=== PATIENT | male | born 1950 | race African-American/Black ===

== ENCOUNTER 2017-05-21 02:35 | Inpatient (IN) | payer MEDICAID ==
[~2017-05-21] VITALS: Ht 167.6 cm; Wt 61.2 kg
[2017-05-21] MEDS ORDERED: SODIUM CHLORIDE 0.9% 1,000 ML IV ONE (02:48)
[2017-05-21 03:09] LABS: BASOPHILS % 0.6 % (0.0-2.0); EOSINOPHILS % 0.4 % (0.0-5.0); HEMATOCRIT. 41.1 % (42.0-52.0); HEMOGLOBIN. 13.6 g/dL (14.0-18.0); MEAN CORPUSCULAR HEMOGLOBIN 30.2 pg (28.0-32.0); MEAN CORPUSCULAR VOLUME 90.9 fL (80.0-94.0); MEAN PLATELET VOLUME 8.3 fl (7.4-10.4); MONOCYTES % 0.7 % (2.0-8.0); NEUTROPHILS % 88.3 % (40.0-76.0); PLATELET 183 x1000/uL (130-400); RED BLOOD CELL COUNT 4.52 mill/uL (4.7-6.1)
[2017-05-21 03:11] LABS: CHLORIDE 104 mEq/L (98-107)
[2017-05-21 03:14] LABS: INR 1.1; PROTHROMBIN TIME 11.2 sec (9.4-11.6)
[2017-05-21 03:19] LABS: CARBON DIOXIDE 30 mEq/L (21-32)
[2017-05-21] MEDS ORDERED: MECLIZINE 25MG TABLET PO ONE (05:45)
[2017-05-21] MEDS ORDERED: SODIUM CHLORIDE 0.9% 1,000 ML IV SCH (05:56)
[2017-05-21] MEDS ORDERED: IBUPROFEN 600MG TABLET PO PRN (06:00)
[2017-05-21] MEDS ORDERED: ACETAMINOPHEN 325MG TABLET PO PRN (06:00)
[2017-05-21 07:34] LABS: *AMPHETAMINES SCREEN URINE NEGATIVE (NEGATIVE); *BARBITURATES SCREEN URINE NEGATIVE (NEGATIVE); *BENZODIAZEPINES SCREEN URINE NEGATIVE (NEGATIVE); *COCAINE SCREEN URINE PRESUMTIVE POSITIVE (NEGATIVE); CANNABINOID URINE SCREEN PRESUMTIVE POSITIVE (NEGATIVE); METHADONE URINE SCREEN NEGATIVE (NEGATIVE); OPIATES URINE SCREEN NEGATIVE (NEGATIVE); PHENCYCLIDINE URINE SCREEN NEGATIVE (NEGATIVE)
[2017-05-21 08:00] VITALS: BP 141/73
[2017-05-21] MEDS ORDERED: MORPHINE SULFATE 4 MG/ML CPJ (NOT FOR IM USE) IV PRN (10:30)
[2017-05-21] MEDS ORDERED: ONDANSETRON HCL 4MG/2ML VIAL IV PRN (10:30)
[2017-05-21 11:36] VITALS: BP 159/78
[2017-05-21] MEDS: ENOXAPARIN 40MG/0.4ML SYR SUBCUT SCH (12:33)
[2017-05-21] MEDS: SODIUM CHLORIDE 0.9% 1,000 ML IV SCH (12:33)
[2017-05-21 16:04] VITALS: BP 146/64
[2017-05-21 22:00] VITALS: BP 143/62
[2017-05-22] VITALS: BP 136/54
[2017-05-22] MEDS: SODIUM CHLORIDE 0.9% 1,000 ML IV SCH (01:20)
[2017-05-22 04:00] VITALS: BP 138/78
[2017-05-22 05:57] LABS: BASOPHILS % 0.9 % (0.0-2.0); EOSINOPHILS % 0.5 % (0.0-5.0); HEMATOCRIT. 36.2 % (42.0-52.0); HEMOGLOBIN. 12.1 g/dL (14.0-18.0); LYMPHOCYTES % 36.5 % (20.0-50.0); MEAN CORPUSCULAR HEMOGLOBIN 30.2 pg (28.0-32.0); MEAN PLATELET VOLUME 8.8 fl (7.4-10.4); MONOCYTES % 3.7 % (2.0-8.0); NEUTROPHILS % 58.4 % (40.0-76.0); PLATELET 149 x1000/uL (130-400); RED BLOOD CELL COUNT 4.02 mill/uL (4.7-6.1)
[2017-05-22 08:00] VITALS: BP 149/78
[2017-05-22 08:07] LABS: CARBON DIOXIDE 29 mEq/L (21-32); CHLORIDE 107 mEq/L (98-107); HDL CHOLESTEROL 60 mg/dL (40-59); LDL CHOLESTEROL 99 mg/dL (5-100)
[2017-05-22] MEDS: ENOXAPARIN 40MG/0.4ML SYR SUBCUT SCH (09:26)
[2017-05-22] MEDS: ASPIRIN 81MG TABLET PO SCH (10:33)
[2017-05-22] MEDS: AMLODIPINE 5MG TABLET PO SCH (10:33)
[2017-05-22 12:00] VITALS: BP 148/80
[2017-05-22 16:00] VITALS: BP 139/71
[2017-05-22 20:00] VITALS: BP 154/76
[2017-05-23 00:37] VITALS: BP 154/75
[2017-05-23 04:00] VITALS: BP 153/90
[2017-05-23 08:00] VITALS: BP 159/76
[2017-05-23] MEDS: AMLODIPINE 5MG TABLET PO SCH ×2 (08:14→21:27)
[2017-05-23] MEDS: ASPIRIN 81MG TABLET PO SCH (08:14)
[2017-05-23] MEDS: ENOXAPARIN 40MG/0.4ML SYR SUBCUT SCH (08:15)
[2017-05-23 08:39] LABS: BASOPHILS % 1.1 % (0.0-2.0); HEMATOCRIT. 40.6 % (42.0-52.0); HEMOGLOBIN. 13.6 g/dL (14.0-18.0); LYMPHOCYTES % 37.6 % (20.0-50.0); MEAN CORPUSCULAR HEMOGLOBIN 30.1 pg (28.0-32.0); MEAN CORPUSCULAR VOLUME 90.1 fL (80.0-94.0); MEAN PLATELET VOLUME 9.1 fl (7.4-10.4); MONOCYTES % 5.6 % (2.0-8.0); NEUTROPHILS % 54.7 % (40.0-76.0); PLATELET 166 x1000/uL (130-400); RED BLOOD CELL COUNT 4.51 mill/uL (4.7-6.1); RED CELL DISTRIBUTION WIDTH 13.9 % (11.6-14.6)
[2017-05-23 09:02] LABS: CARBON DIOXIDE 30 mEq/L (21-32); CHLORIDE 103 mEq/L (98-107); TROPONIN I 0.05 ng/mL (0.00-0.04)
[2017-05-23] MEDS: SODIUM CHLORIDE 0.9% 1,000 ML IV SCH ×3 (11:12→21:28)
[2017-05-23 12:00] VITALS: BP 122/56
[2017-05-23 16:00] VITALS: BP 125/77
[2017-05-23 20:00] VITALS: BP 127/54
[2017-05-24] VITALS: BP 115/50
[2017-05-24 04:00] VITALS: BP 140/68
[2017-05-24 06:33] LABS: BASOPHILS % 0.9 % (0.0-2.0); EOSINOPHILS % 1.6 % (0.0-5.0); HEMATOCRIT. 42.4 % (42.0-52.0); HEMOGLOBIN. 14.1 g/dL (14.0-18.0); LYMPHOCYTES % 30.6 % (20.0-50.0); MEAN CORPUSCULAR HEMOGLOBIN 30.2 pg (28.0-32.0); MEAN CORPUSCULAR VOLUME 90.4 fL (80.0-94.0); MEAN PLATELET VOLUME 8.7 fl (7.4-10.4); MONOCYTES % 5.3 % (2.0-8.0); NEUTROPHILS % 61.6 % (40.0-76.0); PLATELET 174 x1000/uL (130-400); RED BLOOD CELL COUNT 4.69 mill/uL (4.7-6.1); RED CELL DISTRIBUTION WIDTH 13.9 % (11.6-14.6)
[2017-05-24 06:50] LABS: CARBON DIOXIDE 29 mEq/L (21-32); CHLORIDE 103 mEq/L (98-107); TROPONIN I 0.04 ng/mL (0.00-0.04)
[2017-05-24 07:42] VITALS: BP 128/78
[2017-05-24] MEDS: ASPIRIN 81MG TABLET PO SCH (08:57)
[2017-05-24] MEDS: ENOXAPARIN 40MG/0.4ML SYR SUBCUT SCH (08:58)
[2017-05-24] MEDS: AMLODIPINE 5MG TABLET PO SCH (08:58)
[2017-05-24 11:27] VITALS: BP 122/74
[2017-05-24 17:13] VITALS: BP 127/73
== END 2017-05-24 17:45 | disposition home or self-care (01) | DRG 48 ==
LOC: ER 02:35 → 6WST 05:59 → ENRESERV 07:16
PROVIDERS: ADMIT Internal Medicine; ATTEND Internal Medicine
DX: G90.8 Other disorders of autonomic nervous system (principal); E44.1 Mild protein-calorie malnutrition; I10 Essential (primary) hypertension; F20.9 Schizophrenia, unspecified; F14.10 Cocaine abuse, uncomplicated; F12.10 Cannabis abuse, uncomplicated; R00.1 Bradycardia, unspecified; F17.210 Nicotine dependence, cigarettes, uncomplicated; Z59.0 Homelessness; Z68.21 Body mass index [BMI] 21.0-21.9, adult
CPT/HCPCS: 36415; 70450; 70544; 70553; 80048; 80053; 80061; 80305; 83036; 83735; 84443; 84484; 85025; 85610; 93005; 93306; 93880; 96360; 97162; 97165; 99285; J1650; J7030; J8597